=== PATIENT | female | born 1980 | race Caucasian/White ===

== ENCOUNTER 2021-11-17 20:40 | Emergency (ER) | payer BC ==
[~2021-11-17] VITALS: Ht 170.2 cm; Wt 90.5 kg
[2021-11-17] MEDS ORDERED: QUETIAPINE FUMA25 MG PO (22:36)
[2021-11-17] MEDS ORDERED: CONCERTA18 MG PO (22:36)
[2021-11-17] MEDS ORDERED: QUETIAPINE FUMA50 MG PO (22:37)
[2021-11-17] MEDS ORDERED: CELEXA10 MG PO (22:38)
[2021-11-17] MEDS ORDERED: MELOXICAM15 MG PO (23:19)
[2021-11-17] MEDS ORDERED: CYCLOBENZAPRINE10 MG PO (23:19)
== END 2021-11-17 23:59 | disposition home or self-care (01) ==
LOC: ED 20:40
DX: S16.1XXA Strain of muscle, fascia and tendon at neck level, initial encounter (principal); S80.02XA Contusion of left knee, initial encounter; W01.10XA Fall on same level from slipping, tripping and stumbling with subsequent striking against unspecified object, initial encounter; Z79.899 Other long term (current) drug therapy
CPT/HCPCS: 72040; 73560; 96372; 99283-25; J1885